=== PATIENT | male | born 1995 | race Caucasian/White ===

== ENCOUNTER 2018-05-12 16:44 | Emergency (ER) | payer SELFPAY ==
[2018-05-12] MEDS ORDERED: diphenhydrAMINE 12.5 MG/5 ML UDCUP ONE (17:43)
[2018-05-12] MEDS ORDERED: Famotidine/PF 20 mg/2ml Vial ONE (17:43)
[2018-05-12] MEDS ORDERED: methylPREDNISolone Sod Succ/PF 125 MG/2 ML VIAL ONE (17:43)
[2018-05-12] MEDS ORDERED: diphenhydrAMINE 50 MG/ML VIAL ONE ×2 (17:44→18:14)
== END 2018-05-12 20:03 | disposition home or self-care (01) ==
LOC: ERS 16:44
DX: T78.40XA Allergy, unspecified, initial encounter (principal); T78.3XXA Angioneurotic edema, initial encounter
CPT/HCPCS: 96374; 96375; J1200; J2930; S0028